=== PATIENT | female | born 1935 | race Caucasian/White ===

== ENCOUNTER 2016-12-21 21:46 | Emergency (ER) | payer OTHER ==
[~2016-12-21] VITALS: Ht 157.5 cm; Wt 51.6 kg
[2016-12-21] MEDS ORDERED: PERCOCET 5/31 TABLET PO (22:47)
[2016-12-21 23:46] LABS: POINT-OF-CARE METER ID UU14100415
[2016-12-21] MEDS ORDERED: SIMVASTATIN40 MG PO (23:53)
[2016-12-21] MEDS ORDERED: NOVOLOG100 UNIT/1 SC (23:53)
[2016-12-21] MEDS ORDERED: SYNTHROID75 MCG PO (23:54)
[2016-12-21] MEDS ORDERED: MELATIN3 MG PO (23:54)
[2016-12-21 23:56] VITALS: BP 159/97
== END 2016-12-22 00:38 ==
LOC: EME → EDBD 21:46 → EME 12-22 00:38
PROVIDERS: Emergency Medicine
DX: S42.215A Unspecified nondisplaced fracture of surgical neck of left humerus, initial encounter for closed fracture (principal); W05.0XXA Fall from non-moving wheelchair, initial encounter; Y92.129 Unspecified place in nursing home as the place of occurrence of the external cause; E11.9 Type 2 diabetes mellitus without complications; I10 Essential (primary) hypertension; E03.9 Hypothyroidism, unspecified; Z86.73 Personal history of transient ischemic attack (TIA), and cerebral infarction without residual deficits
CPT/HCPCS: 73060; 82948; 99281; 99284